=== PATIENT | female | born 1960 | race Caucasian/White ===

== ENCOUNTER 2016-07-12 02:25 | Emergency (ER) | payer BC, MEDICAID, OTHER ==
[2016-07-12 02:46] VITALS: BP 140/70
[2016-07-12] MEDS ORDERED: Sodium Chloride 0.9% 1,000 ML IV STA (02:58)
[2016-07-12] MEDS ORDERED: Ondansetron 4 MG/2 ML SDV IVPUSH ONE (02:59)
--- NOTE | 2016-07-12 03:01 | EDM.PDOC ---
ED HPI GENERAL MEDICAL PROBLEM - General Chief Complaint: General Stated Complaint: FLU Time Seen by Provider: 07/12/16 02:56 Source of Information: Reports: Patient, RN notes reviewed History Limitations: Reports: No limitations - History of Present Illness INITIAL COMMENTS - FREE TEXT/NARRATIVE: 56-year-old female presents emergency department day complaint of nausea vomiting and diarrhea she is the only member in the house but is ill as a possibility she may of had canned goods that no one else has had, this all started last evening - Related Data Allergies Allergy/AdvReac Type Severity Reaction Status Date / Time ciprofloxacin HCl Allergy Severe Bradycardia Verified 07/12/16 02:46 [From Cipro] Home Meds: Home Meds Albuterol Sulfate [Proair Hfa] 8.5 gm IH ASDIRECTED PRN 03/09/13 [History] Fluticasone Propionate [Flovent HFA 110 MCG] 2 puff IH ASDIRECTED PRN 03/09/13 [ History] Ibuprofen [Motrin Children's Susp] 400 mg PO QID PRN 03/09/13 [History] Sertraline HCl [Sertraline HCl] 50 mg PO DAILY 03/09/13 [History] Urea [Urea 40% Crm] 28.35 gm TOP BID 12/14/15 [History] Past Medical History HEENT History: Reports: Impaired vision Respiratory History: Reports: Asthma Gastrointestinal History: Reports: Cholelithiasis, GERD Musculoskeletal History: Reports: Arthritis, Back pain, chronic, Fracture Other Musculoskeletal History: L1 fracture Psychiatric History: Reports: Depression Dermatologic History: Reports: Other (see below) Other Dermatologic History: dry feet - Infectious Disease History Infectious Disease History: Reports: Chicken pox - Past Surgical History Respiratory Surgical History: Reports: None GI Surgical History: Reports: Cholecystectomy, Colonoscopy, EGD Female Surgical History: Reports: Hysterectomy, Oophorectomy, Salpingo- oophorectomy Social & Family History - Family History Family Medical History: Unobtainable - Tobacco Use Smoking Status *Q: Never Smoker Second Hand Smoke Exposure: No - Caffeine Use Caffeine Use: Reports: Coffee - Alcohol Use Days Per Week of Alcohol Use: 0 - Recreational Drug Use Recreational Drug Use: No ED ROS GENERAL - Review of Systems Review Of Systems: See Below Constitutional: Reports: fever, chills HEENT: Reports: No symptoms Respiratory: Reports: No Symptoms Cardiovascular: Reports: No symptoms GI/Abdominal: Reports: Diarrhea, Nausea, Vomiting : Reports: no symptoms ED EXAM, GENERAL - Physical Exam Exam: See Below Exam Limited By: No limitations General Appearance: alert, WD/WN, no apparent distress Respiratory/Chest: no respiratory distress, lungs clear, normal breath sounds, no accessory muscle use Cardiovascular: regular rate, rhythm, no murmur GI/Abdominal: normal bowel sounds, soft, non tender, no organomegaly, no distention, no abnormal bruit Course - Vital Signs Last Recorded V/S: Last Vital Signs Temp 98.9 F 07/12/16 02:44 Pulse 78 07/12/16 02:44 Resp 16 07/12/16 02:44 BP 140/70 07/12/16 02:44 Pulse Ox 96 07/12/16 02:44 - Orders/Labs/Meds Orders: Active Orders 24 hr Category Date Time Status Peripheral IV Care [RC] . DIRECTED Care 07/12/16 02:59 Active Sodium Chloride 0.9% [Saline Flush] Med 07/12/16 02:58 Active 10 ml FLUSH ASDIRECTED PRN Peripheral IV Insertion Adult [OM.PC] Urgent Oth 07/12/16 02:58 Ordered Medication Orders Sodium Chloride (Saline Flush) 10 ml FLUSH ASDIRECTED PRN PRN Reason: Keep Vein Open Last Admin: 07/12/16 04:41 Dose: 10 ml Admin: 07/12/16 03:23 Dose: 10 ml Labs: Laboratory Tests 07/12/16 07/12/16 07/12/16 Range/Units 02:58 02:58 02:58 WBC 13.9 H (4.5-11.0) K/uL RBC 4.91 (3.30-5.50) M/uL Hgb 15.2 H (12.0-15.0) g/dL Hct 45.5 (36.0-48.0) % MCV 93 (80-98) fL MCH 31 (27-31) pg MCHC 33 (32-36) % Plt Count 263 (150-400) K/uL Neut % (Auto) 91 H (36-66) % Lymph % (Auto) 4 L (24-44) % [place] % (Auto) 4 (2-6) % Eos % (Auto) 1 L (2-4) % Baso % (Auto) 0 (0-1) % Sodium 140 (140-148) mmol/L Potassium 4.6 (3.6-5.2) mmol/L Chloride 102 (100-108) mmol/L Carbon Dioxide 26 (21-32) mmol/L Anion Gap 11.6 (5.0-14.0) mmol/L BUN 22 H (7-18) mg/dL Creatinine 1.1 H (0.6-1.0) mg/dL Est Cr Clr Drug Dosing 54.21 mL/min Estimated GFR (MDRD) 51 L (>60) Glucose 168 H (74-106) mg/dL Lactic Acid 3.0 H (0.4-2.0) mmol/L Calcium 8.7 (8.5-10.1) mg/dL Total Bilirubin 0.4 (0.2-1.0) mg/dL AST 22 (15-37) U/L ALT 37 (12-78) U/L Alkaline Phosphatase 116 (46-116) U/L Total Protein 7.9 (6.4-8.2) g/dL Albumin 4.1 (3.4-5.0) g/dL Globulin 3.8 H (2.3-3.5) g/dL Albumin/Globulin Ratio 1.1 L (1.2-2.2) Lipase 94 (73-393) U/L Urine Color Urine Appearance Urine pH (4.5-8.0) Ur Specific Saxis (1.008-1.030) Urine Protein (NEGATIVE) mg/dL Urine Glucose (UA) (NEGATIVE) mg/dL Urine Ketones (NEGATIVE) mg/dL Urine Occult Blood (NEGATIVE) Urine Nitrite (NEGATIVE) Urine Bilirubin (NEGATIVE) Urine Urobilinogen (NORMAL) mg/dL Ur Leukocyte Esterase (NEGATIVE) Urine RBC (0-5) Urine WBC (0-5) Ur Epithelial Cells Amorphous Sediment Urine Bacteria Urine Mucus 07/12/16 Range/Units 05:04 WBC (4.5-11.0) K/uL RBC (3.30-5.50) M/uL Hgb (12.0-15.0) g/dL Hct (36.0-48.0) % MCV (80-98) fL MCH (27-31) pg MCHC (32-36) % Plt Count (150-400) K/uL Neut % (Auto) (36-66) % Lymph % (Auto) (24-44) % [place] % (Auto) (2-6) % Eos % (Auto) (2-4) % Baso % (Auto) (0-1) % Sodium (140-148) mmol/L Potassium (3.6-5.2) mmol/L Chloride (100-108) mmol/L Carbon Dioxide (21-32) mmol/L Anion Gap (5.0-14.0) mmol/L BUN (7-18) mg/dL Creatinine (0.6-1.0) mg/dL Est Cr Clr Drug Dosing mL/min Estimated GFR (MDRD) (>60) Glucose (74-106) mg/dL Lactic Acid (0.4-2.0) mmol/L Calcium (8.5-10.1) mg/dL Total Bilirubin (0.2-1.0) mg/dL AST (15-37) U/L ALT (12-78) U/L Alkaline Phosphatase (46-116) U/L Total Protein (6.4-8.2) g/dL Albumin (3.4-5.0) g/dL Globulin (2.3-3.5) g/dL Albumin/Globulin Ratio (1.2-2.2) Lipase (73-393) U/L Urine Color Yellow Urine Appearance Clear Urine pH 5.0 (4.5-8.0) Ur Specific Saxis 1.020 (1.008-1.030) Urine Protein Negative (NEGATIVE) mg/dL Urine Glucose (UA) Normal (NEGATIVE) mg/dL Urine Ketones Negative (NEGATIVE) mg/dL Urine Occult Blood Moderate (NEGATIVE) Urine Nitrite Negative (NEGATIVE) Urine Bilirubin Negative (NEGATIVE) Urine Urobilinogen Normal (NORMAL) mg/dL Ur Leukocyte Esterase Negative (NEGATIVE) Urine RBC 0-5 (0-5) Urine WBC 0-5 (0-5) Ur Epithelial Cells Few Amorphous Sediment Not seen Urine Bacteria Few Urine Mucus Not seen Meds: Medications Generic Name Dose Route Start Last Admin Trade Name Freq PRN Reason Stop Dose Admin Sodium Chloride 10 ml 07/12/16 02:58 07/12/16 04:41 Saline Flush FLUSH 10 ml ASDIRECTED PRN Administration Keep Vein Open Discontinued Medications Generic Name Dose Route Start Last Admin Trade Name Freq PRN Reason Stop Dose Admin Sodium Chloride 1,000 mls @ 999 mls/hr 07/12/16 02:58 07/12/16 03:14 Normal Saline IV 07/12/16 03:58 999 mls/hr .BOLUS STA Administration Lactated Ringer's 1,000 mls @ 999 mls/hr 07/12/16 04:12 07/12/16 04:29 Ringers, Lactated IV 07/12/16 05:12 999 mls/hr BOLUS ONE Administration Ondansetron HCl 4 mg 07/12/16 02:59 07/12/16 03:17 Zofran IVPUSH 07/12/16 03:00 4 mg ONETIME ONE Administration Prochlorperazine Edisylate 5 mg 07/12/16 04:33 07/12/16 04:38 Compazine IVPUSH 07/12/16 04:34 5 mg ONETIME ONE Administration Departure - Departure Time of Disposition: 05:37 Disposition: Home, Self-Care 01 Condition: good Clinical Impression: Gastroenteritis Forms: ED Department Discharge Additional Instructions: Continued use Zofran as needed for nausea and vomiting symptoms, Please followup with your primary care provider in 3-5 days if not better, please call return to the emergency department with worsening of symptoms. - My Orders Last 24 Hours: My Active Orders 07/12/16 02:58 Sodium Chloride 0.9% [Saline Flush] 10 ml FLUSH ASDIRECTED PRN Peripheral IV Insertion Adult [OM.PC] Urgent 07/12/16 02:59 Peripheral IV Care [RC] . DIRECTED - Assessment/Plan Last 24 Hours: My Active Orders 07/12/16 02:58 Sodium Chloride 0.9% [Saline Flush] 10 ml FLUSH ASDIRECTED PRN Peripheral IV Insertion Adult [OM.PC] Urgent 07/12/16 02:59 Peripheral IV Care [RC] . DIRECTED Plan: Assessment Acuity = acute Site and laterality = [gastroenteritis Etiology = possibly related to food borne illness Manifestations = nausea vomiting, diarrhea Location of injury = home Lab values = WBC elevated 13.9 consistent leukocytosis creatinine elevated at 1.1 consistent acute renal failure stage GIII a lactic acid elevated at 3.0 lactic acidosis urinalysis unremarkable Plan She had good improvement with combination Zofran and 2 L of fluids plan discharge home with Zofran followup with primary care 3-5 days if not better Patient was in agreement with the plan all questions were answered, they were instructed to return to the emergency department or call for worsening symptoms. This note was dictated using [employer] voice recognition software please call with any questions.
[2016-07-12] MEDS: Sodium Chloride 0.9% 10 ML Syringe FLUSH PRN ×2 (03:23→04:41)
[2016-07-12] MEDS ORDERED: Lactated Ringers 1,000 ML IV ONE (04:12)
[2016-07-12] MEDS ORDERED: Prochlorperazine 10 MG/2 ML SDV IVPUSH ONE (04:33)
== END 2016-07-12 05:50 | disposition home or self-care (01) ==
LOC: JP.ED 02:25
DX: K52.9 Noninfective gastroenteritis and colitis, unspecified (principal); J45.909 Unspecified asthma, uncomplicated; K21.9 Gastro-esophageal reflux disease without esophagitis; M19.90 Unspecified osteoarthritis, unspecified site; F32.9 Major depressive disorder, single episode, unspecified; Z90.49 Acquired absence of other specified parts of digestive tract; Z90.710 Acquired absence of both cervix and uterus; Z79.899 Other long term (current) drug therapy; Z88.1 Allergy status to other antibiotic agents
CPT/HCPCS: 36415; 80053; 81001; 83605; 83690; 85025; 96361; 96374; 96375; 99284; J0780; J2405; J7040; J7050; J7120

== ENCOUNTER 2017-01-24 06:43 | Emergency (ER) | payer BC ==
[2017-01-24 07:20] VITALS: BP 150/74
--- NOTE | 2017-01-24 07:54 | EDM.PDOC ---
ED HPI GENERAL MEDICAL PROBLEM - General Chief Complaint: Lower Extremity Injury/Pain Stated Complaint: POSSIBLE BROKEN RIGHT LEG Time Seen by Provider: 01/24/17 07:00 Source of Information: Reports: Patient History Limitations: Reports: No Limitations - History of Present Illness INITIAL COMMENTS - FREE TEXT/NARRATIVE: 48-year-old female was trying to catch a goose along [place] shore[place] last night when she slipped on the rocks and fell forward into the shallow water. She struck her knees hard on the ground and has significant pain and swelling of the right knee. She doesn't think she turned or twisted her knee but it happened fast. She has significant pain with any attempt at weightbearing today. She points to the lateral distal knee and below the patella as the more significant points of discomfort. No other injury, but she does have an appointment with orthopedics tomorrow to follow-up on her left knee which has been causing her problems. Onset: Sudden Duration: Other (Occurred just over 12 hours ago, last evening) Location: Reports: Lower Extremity, Right Severity: Moderate Improves with: Reports: Rest Worsens with: Reports: Other (Weight-bearing or attempted extension of the knee is very painful) Associated Symptoms: Reports: No Other Symptoms Right Knee Pain Score (Numeric/FACES): 6 - Related Data Allergies Allergy/AdvReac Type Severity Reaction Status Date / Time ciprofloxacin HCl Allergy Severe Bradycardia Verified 07/12/16 02:46 [From Cipro] Home Meds: Home Meds Albuterol Sulfate [Proair Hfa] 8.5 gm IH ASDIRECTED PRN 03/09/13 [History] Fluticasone Propionate [Flovent HFA 110 MCG] 2 puff IH ASDIRECTED PRN 03/09/13 [ History] Ibuprofen [Motrin Children's Susp] 400 mg PO QID PRN 03/09/13 [History] Sertraline HCl [Sertraline HCl] 50 mg PO DAILY 03/09/13 [History] Urea [Urea 40% Crm] 28.35 gm TOP BID 12/14/15 [History] Acetaminophen [Tylenol Extra Strength] 1,000 mg PO DAILY 01/24/17 [History] Past Medical History HEENT History: Reports: Impaired Vision Respiratory History: Reports: Asthma Gastrointestinal History: Reports: Cholelithiasis, GERD Musculoskeletal History: Reports: Arthritis, Back Pain, Chronic, Fracture Other Musculoskeletal History: L1 fracture Psychiatric History: Reports: Depression Dermatologic History: Reports: Other (See Below) Other Dermatologic History: dry feet - Infectious Disease History Infectious Disease History: Reports: Chicken Pox - Past Surgical History Respiratory Surgical History: Reports: None GI Surgical History: Reports: Cholecystectomy, Colonoscopy, EGD Female Surgical History: Reports: Hysterectomy, Oophorectomy, Salpingo- Oophorectomy Social & Family History - Family History Family Medical History: Unobtainable - Tobacco Use Smoking Status *Q: Never Smoker Second Hand Smoke Exposure: No - Caffeine Use Caffeine Use: Reports: Coffee, Soda, Tea - Alcohol Use Days Per Week of Alcohol Use: 0 - Recreational Drug Use Recreational Drug Use: No Review of Systems - Review of Systems Review Of Systems: See Below Respiratory: Denies: Shortness of Breath Cardiovascular: Denies: Chest Pain GI/Abdominal: Denies: Nausea, Vomiting Skin: Denies: Bruising Neurological: Denies: Paresthesia (No numbness or lack of sensation to the right lower leg) Psychiatric: Reports: No Symptoms ED EXAM, GENERAL - Physical Exam Exam: See Below Exam Limited By: No Limitations General Appearance: Alert, No Apparent Distress (Appears uncomfortable but not in any distress) Head: Atraumatic Respiratory/Chest: No Respiratory Distress Extremities: Other (Exam is otherwise limited to the lower extremities. She has obvious swelling and effusion of the right knee compared to the left knee. There is no external evidence of trauma such as abrasion or bruising. She has excellent distal pulses to both feet. Focal exam of the right knee reveals tenderness over the proximal fibula, significant tenderness to palpation of the distal patellar tendon and along the anterior tibial plateau. She is just too tender to assess ligaments at this time.) Course - Vital Signs Last Recorded V/S: Last Vital Signs Temp 99.9 F 01/24/17 06:47 Pulse 81 01/24/17 06:47 Resp 18 01/24/17 06:47 BP 150/74 H 01/24/17 06:47 Pulse Ox 95 01/24/17 06:47 - Orders/Labs/Meds Orders: Active Orders 24 hr Category Date Time Status DME for Discharge [COMM] Stat Oth 01/24/17 07:51 Ordered DME for Discharge [COMM] Stat Oth 01/24/17 14:43 Ordered - Re-Assessments/Exams Free Text/Narrative Re-Assessment/Exam: 01/24/17 07:54 A right knee and right tib-fib were x-rayed. There is a slight irregularity on the tibial plateau laterally. 01/24/17 15:14 We were originally going to have the patient just follow up with orthopedics, but I called her back to confirm a fracture with a CT scan because the findings were so subtle. This did confirm a lateral tibial plateau fracture. She was placed in a knee immobilizer and will follow up with orthopedics tomorrow. Departure - Departure Time of Disposition: 09:45 Disposition: Home, Self-Care 01 Condition: Good Clinical Impression: Fracture of tibial plateau - Discharge Information Instructions: Knee Sprain, [id number] Referrals: PCP,None [Primary Care Provider] - Forms: ED Department Discharge Care Plan Goals: Use crutches, Reji wrapping and avoid weightbearing of the right leg until your recheck with Dr. Broussard tomorrow. Acetaminophen along with ibuprofen or naproxen will help with pain. - My Orders Last 24 Hours: My Active Orders 01/24/17 07:51 DME for Discharge [COMM] Stat 01/24/17 14:43 DME for Discharge [COMM] Stat - Assessment/Plan Last 24 Hours: My Active Orders 01/24/17 07:51 DME for Discharge [COMM] Stat 01/24/17 14:43 DME for Discharge [COMM] Stat
--- NOTE | 2017-01-24 09:04 | CR ---
Knee 3V Rt, Tibia Fibula Rt INDICATION: injury FINDINGS: Cortical irregularity and lucency through the medial or lateral tibial plateau on the later al view is highly suspicious for tibial plateau fracture. This is not definitively identified on the AP view. Moderate-sized knee effusion. Probable small loose body in the suprapatellar bursa measuring 6 mm. Mild tricompartmental degenerative change. Remainder of the exam is unremarkable. Findings discussed in person with Dr. Mauro on January at 9:00 AM on 11/24/2016.
== END 2017-01-24 08:10 | disposition home or self-care (01) ==
LOC: JP.ED 06:43
DX: S82.141A Displaced bicondylar fracture of right tibia, initial encounter for closed fracture (principal); J45.909 Unspecified asthma, uncomplicated; Z88.1 Allergy status to other antibiotic agents; Z79.899 Other long term (current) drug therapy; W01.198A Fall on same level from slipping, tripping and stumbling with subsequent striking against other object, initial encounter; S89.91XA Unspecified injury of right lower leg, initial encounter
CPT/HCPCS: 73562-26-RT; 73562-RT; 73590-26-RT; 73590-RT; 73700-26-RT; 73700-RT; 99284

== ENCOUNTER 2018-06-05 07:57 | Observation (INO) | payer BC ==
[~2018-06-05 07:57] MED LIST: Midazolam 1 MG/ML 2 ML SDV ONE; Propofol 200 MG/20 ML SDV ONE; fentaNYL 100 MCG/2 ML SDV ONE
[2018-06-05] MEDS ORDERED: Dextrose 5%-Lactated Ringers 1,000 ML IV SCH (08:45)
[2018-06-05] MEDS ORDERED: Propofol 200 MG/20 ML SDV ONE (10:18)
[2018-06-05] MEDS ORDERED: Ondansetron 4 MG/2 ML SDV IVPUSH ONE (10:55)
[2018-06-05] MEDS ORDERED: HYDROmorphone 1 MG/ML Syringe IVPUSH ONE (12:15)
--- NOTE | 2018-06-05 13:39 | CRLCT ---
INDICATION: Post colonoscopy pain TECHNIQUE: CT abdomen and pelvis without contrast. COMPARISON: 07/30/17 FINDINGS: Lower chest: Unremarkable. Liver: Unremarkable. Spleen: Unremarkable. Pancreas: Unremarkable. Gallbladder and bile ducts: Cholecystectomy. Adrenal glands: Unremarkable. Kidneys: Unremarkable. No kidney or ureteral stones and no hydronephrosis. GI tract: No mechanical small bowel obstruction. Several clumped, decompressed pelvic small bowel segments on image 112, nonspecific. A normal caliber appendix. Mild gaseous distention of the majority of the colon. Left colonic diverticulosis without diverticulitis. Vascular structures: Mild atherosclerotic changes. Lymph nodes: Unremarkable. Miscellaneous: Small extraluminal fluid in the right lower quadrant, adjacent to the appendix, and posterior inferior pelvis. No free air. Small ill-defined foci of mildly increased attenuation in the central mesenteric fat, nonspecific. Pelvic Organs: Hysterectomy. Mild bladder wall thickening, at least partially related to under distention. Bones: A compression deformity of the L1 vertebral body again seen. IMPRESSION: Mild colonic gaseous distention. Colonic diverticulosis without diverticulitis. No evidence of gross appendicitis or high-grade mechanical bowel obstruction. Small extraluminal fluid in the right lower quadrant and pelvis. No free air seen. Mild bladder wall thickening is at least partly related to under distension. Correlate with urinalysis. Dictated by Neil Mariscal MD @ 06/05/2018 1:32:27 PM Please note that all CT scans at this facility use dose modulation, iterative reconstruction, and/or weight-based dosing when appropriate to reduce radiation dose to as low as reasonably achievable. Dictated by: Neil Mariscal MD @ 06/05/2018 13:32:38 (Electronically Signed)
[2018-06-05] MEDS ORDERED: Ondansetron 4 MG/2 ML SDV IVPUSH PRN (14:28)
[2018-06-05] MEDS ORDERED: HYDROmorphone 0.5 MG/0.5 ML Syringe IVPUSH ONE (14:30)
--- NOTE | 2018-06-05 14:40 | PCM.HP ---
H&P History of Present Illness - General Date of Service: 06/05/18 Admit Problem/Dx: Admission Diagnosis/Problem Admission Diagnosis/Problem Colitis Source of Information: Patient, Provider, RN Notes Reviewed History Limitations: Reports: No Limitations - History of Present Illness Initial Comments - Free Text/Narative: Ms. Oliver is a 58-year-old woman who is admitted from the patient care unit with abdominal pain and nausea following colonoscopy. She's had a recent history of 3 episodes of diverticulitis over the past year, most recent of which was in March 2018. Colonoscopy was scheduled for follow-up, since her episode of diverticulitis in March she is felt relatively well and denies any new symptoms over the past few weeks. She has a history of irritable bowel syndrome with alternating diarrhea and constipation, this pattern has not changed significantly in the past several weeks. She denies any increase in diarrhea, fever, or increase in abdominal pain. She does have chronic right lower quadrant abdominal pain that is been present for many years. Colonoscopy was performed this morning by Dr. Guerrero and did show evidence of colitis in the left colon, not involving the rectum. She has had occasional episodes of blood on the toilet paper and small amount of blood in the toilet water but denies any overt bleeding. On colonoscopy she was found to have evidence of diverticulosis but no diverticulitis. She has had significant pain in her right lower quadrant since surgery, it similar to the usual pain that she experiences but more intense. She also is had some ongoing difficulty with nausea. CT scan of the abdomen and pelvis shows evidence of diverticulosis, oh evidence of diverticulitis or free air within the abdomen. No evidence of significant colonic inflammation was identified on the CT scan. Right Abdominal Pain Score (Numeric/FACES): 8 - Related Data Allergies/Adverse Reactions: Allergies Allergy/AdvReac Type Severity Reaction Status Date / Time ciprofloxacin HCl Allergy Severe Bradycardia Verified 06/05/18 08:24 [From Cipro] adhesive tape Allergy Other Verified 06/05/18 08:24 cat dander Allergy Other Verified 06/05/18 08:24 dog dander Allergy Other Verified 06/05/18 08:24 Quinolones Allergy Other Verified 06/05/18 08:24 environmental Allergy Other Uncoded 06/05/18 08:24 Home Medications: Home Meds Albuterol Sulfate [Proair Hfa] 2 puff IH Q4H PRN 03/09/13 [History] Fluticasone Propionate [Flovent HFA 110 MCG] 2 puff IH ASDIRECTED PRN 03/09/13 [ History] Sertraline HCl 50 mg PO DAILY 03/09/13 [History] Ondansetron [Zofran ODT] 4 mg PO Q6H PRN #10 tab.dis 01/07/18 [Rx] Amoxicillin/Clavulanate K [Augmentin 875-125 MG] 1 tab PO BID PRN 06/03/18 [ History] Aspirin [Low Dose Aspirin EC] 81 mg PO DAILY 06/03/18 [History] metroNIDAZOLE [Metronidazole] 500 mg PO BID PRN 06/03/18 [History] Naproxen Sodium [Aleve] 220 mg PO DAILY PRN 06/05/18 [History] Past Medical History HEENT History: Reports: Impaired Vision Respiratory History: Reports: Asthma Gastrointestinal History: Reports: Cholelithiasis, Chronic Constipation, Chronic Diarrhea, Diverticulosis, GERD, Irritable Bowel Syndrome Genitourinary History: Reports: None MAINFRAME ARCHITECT History: Reports: Endometriosis Musculoskeletal History: Reports: Arthritis, Fracture Other Musculoskeletal History: L1 fracture Psychiatric History: Reports: Depression Endocrine/Metabolic History: Reports: Obesity/BMI 30+ Dermatologic History: Reports: Other (See Below) Other Dermatologic History: dry feet - Infectious Disease History Infectious Disease History: Reports: Chicken Pox - Past Surgical History HEENT Surgical History: Reports: None Respiratory Surgical History: Reports: None GI Surgical History: Reports: Cholecystectomy, Colonoscopy, EGD Female Surgical History: Reports: Breast Biopsy, Hysterectomy, Oophorectomy, Salpingo-Oophorectomy Endocrine Surgical History: Reports: None Musculoskeletal Surgical History: Reports: Arthroscopic Knee Dermatological Surgical History: Reports: None Social & Family History - Family History Family Medical History: Unobtainable Cardiac: Reports: Bypass, CAD - Tobacco Use Smoking Status *Q: Former Smoker Years of Tobacco use: 4 Packs/Tins Daily: 1 Used Tobacco, but Quit: Yes Month/Year Tobacco Last Used: March Second Hand Smoke Exposure: No - Caffeine Use Caffeine Use: Reports: Coffee, Soda - Recreational Drug Use Recreational Drug Use: No H&P Review of Systems - Review of Systems: Review Of Systems: See Below General: Reports: No Symptoms HEENT: Reports: No Symptoms Pulmonary: Reports: No Symptoms Cardiovascular: Reports: No Symptoms Gastrointestinal: Reports: Abdominal Pain, Constipation, Diarrhea, Nausea. Denies: Black Stool, Bloody Stool, Decreased Appetite, Difficulty Swallowing, Distension, Vomiting Genitourinary: Reports: No Symptoms Musculoskeletal: Reports: No Symptoms Skin: Reports: No Symptoms Psychiatric: Reports: No Symptoms Neurological: Reports: No Symptoms Hematologic/Lymphatic: Reports: No Symptoms Immunologic: Reports: No Symptoms Exam - Exam Exam: See Below - Vital Signs Vital Signs: Last Vital Signs Temp 97.3 F 06/05/18 11:15 Pulse 74 06/05/18 12:59 Resp 16 06/05/18 12:59 BP 117/73 06/05/18 12:59 Pulse Ox 96 06/05/18 12:59 Weight: 225 lb 9.6 oz - Exam Quality Assessment: Supplemental Oxygen, DVT Prophylaxis General: Alert, Oriented, Cooperative, Moderate Distress HEENT: Conjunctiva Clear, Hearing Intact, Mucosa Moist & [place], Normal Nasal Septum, Posterior Pharynx Clear, Pupils Equal Neck: Supple, Trachea Midline, +2 Carotid Pulse wo Bruit Lungs: Clear to Auscultation, Normal Respiratory Effort Cardiovascular: Regular Rate, Regular Rhythm, Normal S1, Normal S2. No: Systolic Murmur, Diastolic Murmur GI/Abdominal Exam: Soft, No Organomegaly, Tender. No: Distended, Guarding, Rigid, Rebound Back Exam: Normal Inspection, Full Range of Motion Extremities: Non-Tender, No Pedal Edema Skin: Warm, Dry, Intact Neurological: Cranial Nerves Intact, Strength Equal Bilateral, Normal Speech, Normal Tone, Sensation Intact. No: Focal Deficit Neuro Extensive - Mental Status: Alert, Oriented x3, Normal Mood/Affect, Normal Cognition, Memory Intact - Patient Data Nathan Results Last 24 hrs: Microbiology 06/05/18 10:54 Clostridioides difficile (PCR) - Final Stool / Feces NEGATIVE CDIFF TOXIN *Q Meaningful Use (ADM) - VTE Risk Assess *Q Each Risk Factor Represents 1 Point: Obesity ( BMI > 25 kg/m2) Total Score 1 Point Risk Factors: 1 Each Risk Factor Represents 2 Points: Age 60 - 74 Years Total Score 2 Point Risk Factors: 2 Each Risk Factor Represents 3 Points: None Total Score 3 Point Risk Factors: 0 Each Risk Factor Represents 5 Points: None Total Score 5 Point Risk Factors: 0 Venous Thromboembolism Risk Factor Score *Q: 3 Problem List Initiated/Reviewed/Updated: Yes Orders Last 24hrs: Active Orders 24 hr Category Date Time Status Patient Status Manage Transfer [TRANSFER] Routine ADT 06/05/18 14:25 Active CLOSTRIDIUM DIFFICILE BY PCR [RM] Stat Lab 06/05/18 14:37 Ordered CULTURE STOOL + SHIGATOX [RM] Routine Lab 06/05/18 10:54 Received OVA + PARASITE EXAM Routine Lab 06/05/18 10:54 Received Dextrose 5%-Lactated Ringers 1,000 ml Med 06/05/18 08:45 Active IV ASDIRECTED Ondansetron [Zofran] Med 06/05/18 14:28 Active 4 mg IVPUSH Q4H PRN Resuscitation Status Routine Resus Stat 06/05/18 14:27 Ordered Medication Orders Dextrose/Lactated Ringer's (Dextrose 5%-Lactated Ringers) 1,000 mls @ 100 mls/ hr IV ASDIRECTED WILFRED Last Admin: 06/05/18 08:48 Dose: 100 mls/hr Ondansetron HCl (Zofran) 4 mg IVPUSH Q4H PRN PRN Reason: Nausea/Vomiting Stop: 06/05/18 23:00 Assessment/Plan Comment:: ASSESSMENT AND PLAN ABDOMINAL PAIN AND NAUSEA STATUS POST COLONOSCOPY-likely secondary to increased air in the colon, from recent procedure. CT scan of the abdomen and pelvis shows no evidence of free air or other significant abnormality to explain current symptoms. -IV fluids for hydration -Indication for pain and nausea as needed COLITIS-identified on colonoscopy, no evidence of significant colon wall thickening noted on CT scan. Unlikely that this is the cause of current pain, in that the colitis was found on the left and most of her pain is in the right lower quadrant. Prior to today she has not had significant increase in her chronic abdominal pain or change in bowel habits. Small amount of blood noted intermittently in the form of blood on the toilet paper and drops of blood in the toilet water. Denies any recent fevers chills or sweats. Stool for C. difficile is negative, cultures pending. Most likely this represents infectious colitis, less likely inflammatory bowel disease area -Labs pending including CBC and CRP -IV antibiotic therapy; ceftriaxone and Flagyl MAINTENANCE ISSUES -DVT prophylaxis; Lovenox 40 mg subcutaneous daily -GI prophylaxis; Protonix 40 mg by mouth daily -Jaimes catheter; not indicated -Nutrition; regular diet -Nicotine dependence; not required CODE STATUS-full code ADMISSION STATUS-this patient will be admitted to observation status, expect no more than a one night hospital stay for evaluation and management of problems as outlined above. DISPOSITION-anticipate discharge to home after the hospital stay. PRIMARY CARE PROVIDER-Dr. Hwang
[2018-06-05] MEDS ORDERED: Ondansetron 4 MG/2 ML SDV IV PRN (15:22)
[2018-06-05] MEDS ORDERED: Albuterol 0.083% 2.5 MG/3 ML Neb Soln NEB PRN (15:22)
[2018-06-05] MEDS ORDERED: LORazepam 2 MG/ML SDV IVPUSH PRN (15:22)
[2018-06-05] MEDS ORDERED: Albuterol 8 GM Inhaler INH PRN (15:22)
[2018-06-05] MEDS ORDERED: Sodium Chloride 0.9% 10 ML Syringe FLUSH PRN (15:22)
[2018-06-05] MEDS ORDERED: HYDROmorphone 0.5 MG/0.5 ML Syringe IVPUSH PRN (15:22)
[2018-06-05] MEDS ORDERED: FLUTICASONE PROPIONATE IH PRN (15:22)
[2018-06-05] MEDS ORDERED: Mometasone Furoate HFA 100mcg/Puff 13 GM Inhaler INH PRN (16:39)
[2018-06-05] MEDS: cefTRIAXone 1 GM in Sodium Chloride 0.9% 50 ML IV SCH (17:01)
[2018-06-05] MEDS: Lactobacillus Rhamnosus GG (Probiotic) Cap PO SCH ×2 (17:01→20:27)
[2018-06-05] MEDS: Enoxaparin 40 MG/0.4 ML Syringe SUBCUT SCH (17:19)
[2018-06-05] MEDS: Sodium Chloride 0.9% 1,000 ML IV SCH (17:21)
[2018-06-05] MEDS: metroNIDAZOLE/Normal Saline 500 MG in Premix Bag 1 BAG IV SCH (18:01)
[2018-06-05] MEDS: Calcium Carbonate 500 MG Tab.Chew PO PRN (22:38)
[2018-06-05] MEDS: HYDROmorphone 2 MG Tab PO PRN (22:39)
[2018-06-06] MEDS: metroNIDAZOLE/Normal Saline 500 MG in Premix Bag 1 BAG IV SCH ×3 (00:48→16:41)
[2018-06-06] MEDS: Sodium Chloride 0.9% 1,000 ML IV SCH ×2 (00:48→10:20)
[2018-06-06] MEDS: HYDROmorphone 2 MG Tab PO PRN ×2 (02:59→07:58)
[2018-06-06] MEDS: Pantoprazole 40 MG Tab.CR PO SCH (07:51)
[2018-06-06] MEDS: Lactobacillus Rhamnosus GG (Probiotic) Cap PO SCH ×2 (08:00→21:25)
[2018-06-06] MEDS ORDERED: Aspirin 81 MG Tab.EC PO SCH (09:00)
[2018-06-06] MEDS ORDERED: Sertraline 50 MG Tab PO SCH (09:00)
--- NOTE | 2018-06-06 09:42 | PCM.SURGPN ---
- General Info Date of Surgery/Procedure: 06/05/18 Post-Op Diagnosis: Right Lower Quadrant Abdominal Pain Functional Status: Reports: Pain Controlled Pain Score: 4 - Review of Systems General: Reports: Weakness, Fatigue HEENT: Reports: No Symptoms Pulmonary: Reports: No Symptoms Cardiovascular: Reports: No Symptoms Gastrointestinal: Reports: Abdominal Pain (right lower quadrant), Decreased Appetite Genitourinary: Reports: No Symptoms Musculoskeletal: Reports: No Symptoms Skin: Reports: No Symptoms Neurological: Reports: No Symptoms Psychiatric: Reports: No Symptoms - Patient Data Vitals - Most Recent: Last Vital Signs Temp 99 F 06/06/18 07:35 Pulse 72 06/06/18 07:35 Resp 16 06/06/18 07:35 BP 118/63 06/06/18 07:35 Pulse Ox 97 06/06/18 07:35 Weight - Most Recent: 225 lb 9.6 oz I&O - Last 24 Hours: Intake & Output 06/05/18 06/06/18 06/06/18 22:59 06:59 14:59 Intake Total 910 2169 100 Output Total 400 400 400 Balance 510 1769 -300 Lab Results Last 24 Hrs: Laboratory Results - last 24 hr 06/05/18 06/05/18 Range/Units 15:22 15:22 WBC 10.1 (4.5-11.0) K/uL RBC 4.61 (3.30-5.50) M/uL Hgb 14.3 (12.0-15.0) g/dL Hct 44.2 (36.0-48.0) % MCV 96 (80-98) fL MCH 31 (27-31) pg MCHC 32 (32-36) % Plt Count 259 (150-400) K/uL Neut % (Auto) 81 H (36-66) % Lymph % (Auto) 12 L (24-44) % Davidson % (Auto) 6 (2-6) % Eos % (Auto) 2 (2-4) % Baso % (Auto) 0 (0-1) % Sodium 141 (140-148) mmol/L Potassium 3.9 (3.6-5.2) mmol/L Chloride 105 (100-108) mmol/L Carbon Dioxide 26 (21-32) mmol/L Anion Gap 9.8 (5.0-14.0) mmol/L BUN 15 (7-18) mg/dL Creatinine 0.9 (0.6-1.0) mg/dL Est Cr Clr Drug Dosing 63.43 mL/min Estimated GFR (MDRD) > 60 (>60) Glucose 119 H (74-106) mg/dL Calcium 8.8 (8.5-10.1) mg/dL Total Bilirubin 0.4 (0.2-1.0) mg/dL AST 26 (15-37) U/L ALT 35 (12-78) U/L Alkaline Phosphatase 119 H (46-116) U/L C-Reactive Protein 0.47 H (0.0-0.3) mg/dL Total Protein 7.0 (6.4-8.2) g/dL Albumin 3.6 (3.4-5.0) g/dL Globulin 3.4 (2.3-3.5) g/dL Albumin/Globulin Ratio 1.1 L (1.2-2.2) Nathan Results Last 24 Hrs: Microbiology 06/05/18 10:54 Stool Culture - Preliminary Stool / Feces - Stool, Liquid NORMAL ENTERIC CHRIS 1 DAY Shiga Toxin I - Final NEGATIVE FOR SHIGA TOXIN 1 Shiga Toxin II - Final NEGATIVE FOR SHIGA TOXIN 2 06/05/18 10:54 Clostridioides difficile (PCR) - Final Stool / Feces NEGATIVE CDIFF TOXIN Med Orders - Current: Current Medications Acetaminophen (Tylenol) 650 mg PO Q4H PRN PRN Reason: Pain (Mild 1-3)/fever Albuterol (Ventolin Hfa) 0 gm INH Q4H PRN PRN Reason: Wheezing Albuterol (Proventil Neb Soln) 2.5 mg NEB Q4H PRN PRN Reason: Shortness Of Breath/wheezing Aspirin (Halfprin) 81 mg PO DAILY [facility] Last Admin: 06/06/18 08:01 Dose: Not Given Calcium Carbonate/Glycine (Tums) 1,000 mg PO Q2H PRN PRN Reason: Indigestion Last Admin: 06/05/18 22:38 Dose: 1,000 mg Enoxaparin Sodium (Lovenox) 40 mg SUBCUT Q24H [facility] Last Admin: 06/05/18 17:19 Dose: Not Given Hydromorphone HCl (Dilaudid) 0.25 mg IVPUSH Q2H PRN PRN Reason: Pain Last Admin: 06/05/18 17:19 Dose: 0.25 mg Hydromorphone HCl (Dilaudid) 2 mg PO Q3H PRN PRN Reason: Pain Last Admin: 06/06/18 07:58 Dose: 1 mg Ceftriaxone Sodium 1 gm/ (Sodium Chloride) 50 mls @ 100 mls/hr IV Q24H [facility] Last Admin: 06/05/18 17:01 Dose: 100 mls/hr Sodium Chloride (Normal Saline) 1,000 mls @ 125 mls/hr IV ASDIRECTED [facility] Last Admin: 06/06/18 00:48 Dose: 125 mls/hr Metronidazole 500 mg/ Premix 100 mls @ 100 mls/hr IV Q8H [facility] Last Admin: 06/06/18 09:12 Dose: 100 mls/hr Lactobacillus Rhamnosus (Culturelle) 1 cap PO BID [facility] Last Admin: 06/06/18 08:00 Dose: 1 cap Lorazepam (Ativan) 0.25 mg IVPUSH Q4H PRN PRN Reason: Nausea Mometasone Furoate (Asmanex Hfa 100mcg) 0 gm INH BIDRT PRN PRN Reason: WHEEZING Naproxen (Naproxen Sodium) 220 mg PO DAILY PRN PRN Reason: Pain Ondansetron HCl (Zofran) 4 mg IV Q4H PRN PRN Reason: Nausea/Vomiting Pantoprazole Sodium (Protonix) 40 mg PO ACBREAKFAST [facility] Last Admin: 06/06/18 07:51 Dose: 40 mg Sertraline HCl (Zoloft) 50 mg PO DAILY [facility] Last Admin: 06/06/18 08:01 Dose: Not Given Sodium Chloride (Saline Flush) 10 ml FLUSH ASDIRECTED PRN PRN Reason: Keep Vein Open Discontinued Medications Fentanyl (Sublimaze) Confirm Administered Dose 100 mcg .ROUTE .STK-MED ONE Stop: 06/05/18 07:36 Hydromorphone HCl (Dilaudid) 1 mg IVPUSH ONETIME ONE Stop: 06/05/18 12:16 Last Admin: 06/05/18 12:20 Dose: 1 mg Hydromorphone HCl (Dilaudid) 0.5 mg IVPUSH ONETIME ONE Stop: 06/05/18 14:31 Last Admin: 06/05/18 14:34 Dose: 0.5 mg Dextrose/Lactated Ringer's (Dextrose 5%-Lactated Ringers) 1,000 mls @ 100 mls/ hr IV ASDIRECTED WILFRED Last Admin: 06/05/18 08:48 Dose: 100 mls/hr Midazolam HCl (Versed 1 Mg/Ml) Confirm Administered Dose 2 mg .ROUTE .STK-MED ONE Stop: 06/05/18 07:36 Ondansetron HCl (Zofran) 4 mg IVPUSH ONETIME ONE Stop: 06/05/18 10:56 Last Admin: 06/05/18 11:02 Dose: 4 mg Ondansetron HCl (Zofran) 4 mg IVPUSH Q4H PRN PRN Reason: Nausea/Vomiting Stop: 06/05/18 23:00 Last Admin: 06/05/18 14:40 Dose: 4 mg Propofol (Diprivan 20 Ml) Confirm Administered Dose 200 mg .ROUTE .STK-MED ONE Stop: 06/05/18 07:36 Propofol (Diprivan 20 Ml) Confirm Administered Dose 200 mg .ROUTE .STK-MED ONE Stop: 06/05/18 10:19 - Exam General: Mild Distress HEENT: Pupils Equal, Pupils Reactive Neck: Supple Lungs: Clear to Auscultation, Normal Respiratory Effort Cardiovascular: Regular Rate, Regular Rhythm GI/Abdominal Exam: Tender (moderate amount of tenderness in the right lower quadrant ) Extremities: Normal Inspection, Normal Range of Motion Skin: Warm, Dry, Intact Neurological: Normal Gait, Normal Speech Psy/Mental Status: Alert - Problem List & Annotations (1) Status post colonoscopy SNOMED Code(s): 829348980149, [id number], 583354296551 Code(s): Z98.890 - OTHER SPECIFIED POSTPROCEDURAL STATES Status: Acute Current Visit: Yes - Problem List Review Problem List Initiated/Reviewed/Updated: Yes - My Orders Last 24 Hours: Active Orders 24 hr Category Date Time Status Patient Status [ADT] Routine ADT 06/05/18 15:22 Active Ambulate [RC] QID Care 06/05/18 15:22 Active Height and Weight [RC] DAILY Care 06/05/18 15:22 Active Intake and Output [RC] QSHIFT Care 06/05/18 15:22 Active Notify Provider Vital Signs [RC] ASDIRECTED Care 06/05/18 15:22 Active Overnight Pulse Oximetry [RC] Click to Edit Care 06/05/18 15:22 Active Oxygen Therapy [RC] PRN Care 06/05/18 15:22 Active RT Aerosol Therapy [RC] ASDIRECTED Care 06/05/18 15:22 Active Up ad Sara [RC] ASDIRECTED Care 06/05/18 15:22 Active Up to Chair [RC] QID Care 06/05/18 15:22 Active VTE/DVT Education [RC] Per Unit Routine Care 06/05/18 15:22 Active Vital Signs [RC] Q4H Care 06/05/18 15:22 Active Regular Diet [DIET] Diet 06/05/18 Lunch Active CULTURE STOOL + SHIGATOX [RM] Routine Lab 06/05/18 10:54 Results OVA + PARASITE EXAM Routine Lab 06/05/18 10:54 Received Acetaminophen [Tylenol] Med 06/05/18 15:22 Active 650 mg PO Q4H PRN Albuterol [Proventil Neb Soln] Med 06/05/18 15:22 Active 2.5 mg NEB Q4H PRN Albuterol [Ventolin HFA] Med 06/05/18 15:22 Active 0 gm INH Q4H PRN Aspirin [Halfprin] Med 06/06/18 09:00 Active 81 mg PO DAILY Calcium Carbonate [Tums] Med 06/05/18 21:47 Active 1,000 mg PO Q2H PRN Enoxaparin [Lovenox] Med 06/05/18 17:00 Active 40 mg SUBCUT Q24H HYDROmorphone [Dilaudid] Med 06/05/18 15:22 Active 0.25 mg IVPUSH Q2H PRN HYDROmorphone [Dilaudid] Med 06/05/18 22:24 Active 2 mg PO Q3H PRN LORazepam [Ativan] Med 06/05/18 15:22 Active 0.25 mg IVPUSH Q4H PRN Lactobacillus Rhamnosus GG [Culturelle] Med 06/05/18 16:15 Active 1 cap PO BID Mometasone Furoate 100mcg [Asmanex HFA 100mcg] Med 06/05/18 16:39 Active 0 gm INH BIDRT PRN Naproxen Sodium Med 06/05/18 15:22 Active 220 mg PO DAILY PRN Ondansetron [Zofran] Med 06/05/18 15:22 Active 4 mg IV Q4H PRN Pantoprazole [ProTONIX] Med 06/06/18 07:30 Active 40 mg PO ACBREAKFAST Sertraline [Zoloft] Med 06/06/18 09:00 Active 50 mg PO DAILY Sodium Chloride 0.9% [Normal Saline] 1,000 ml Med 06/05/18 15:22 Active IV ASDIRECTED Sodium Chloride 0.9% [Saline Flush] Med 06/05/18 15:22 Active 10 ml FLUSH ASDIRECTED PRN cefTRIAXone [Rocephin] 1 gm Med 06/05/18 16:30 Active Sodium Chloride 0.9% [Normal Saline] 50 ml IV Q24H metroNIDAZOLE/Normal Saline [Flagyl 500 MG in NS 100 ML Med 06/05/18 17:30 Active ] 500 mg Premix Bag 1 bag IV Q8H Peripheral IV Insertion Adult [OM.PC] Routine Oth 06/05/18 15:22 Ordered Pulse Oximetry Continuous Monitoring [OM.PC] Routine Oth 06/05/18 15:22 Ordered Resuscitation Status Routine Resus Stat 06/05/18 14:27 Ordered Medication Orders Acetaminophen (Tylenol) 650 mg PO Q4H PRN PRN Reason: Pain (Mild 1-3)/fever Albuterol (Ventolin Hfa) 0 gm INH Q4H PRN PRN Reason: Wheezing Albuterol (Proventil Neb Soln) 2.5 mg NEB Q4H PRN PRN Reason: Shortness Of Breath/wheezing Aspirin (Halfprin) 81 mg PO DAILY [facility] Last Admin: 06/06/18 08:01 Dose: Not Given Calcium Carbonate/Glycine (Tums) 1,000 mg PO Q2H PRN PRN Reason: Indigestion Last Admin: 06/05/18 22:38 Dose: 1,000 mg Enoxaparin Sodium (Lovenox) 40 mg SUBCUT Q24H [facility] Last Admin: 06/05/18 17:19 Dose: Not Given Hydromorphone HCl (Dilaudid) 0.25 mg IVPUSH Q2H PRN PRN Reason: Pain Last Admin: 06/05/18 17:19 Dose: 0.25 mg Hydromorphone HCl (Dilaudid) 2 mg PO Q3H PRN PRN Reason: Pain Last Admin: 06/06/18 07:58 Dose: 1 mg Admin: 06/06/18 02:59 Dose: 1 mg Admin: 06/05/18 22:39 Dose: 1 mg Ceftriaxone Sodium 1 gm/ (Sodium Chloride) 50 mls @ 100 mls/hr IV Q24H [facility] Last Admin: 06/05/18 17:01 Dose: 100 mls/hr Sodium Chloride (Normal Saline) 1,000 mls @ 125 mls/hr IV ASDIRECTED [facility] Last Admin: 06/06/18 00:48 Dose: 125 mls/hr Infusion: 06/06/18 00:48 Dose: 125 mls/hr Admin: 06/05/18 17:21 Dose: 125 mls/hr Metronidazole 500 mg/ Premix 100 mls @ 100 mls/hr IV Q8H [facility] Last Admin: 06/06/18 09:12 Dose: 100 mls/hr Infusion: 06/06/18 01:48 Dose: 100 mls/hr Admin: 06/06/18 00:48 Dose: 100 mls/hr Infusion: 06/05/18 19:01 Dose: 100 mls/hr Admin: 06/05/18 18:01 Dose: 100 mls/hr Lactobacillus Rhamnosus (Culturelle) 1 cap PO BID [facility] Last Admin: 06/06/18 08:00 Dose: 1 cap Admin: 06/05/18 20:27 Dose: 1 cap Admin: 06/05/18 17:01 Dose: 1 cap Lorazepam (Ativan) 0.25 mg IVPUSH Q4H PRN PRN Reason: Nausea Mometasone Furoate (Asmanex Hfa 100mcg) 0 gm INH BIDRT PRN PRN Reason: WHEEZING Naproxen (Naproxen Sodium) 220 mg PO DAILY PRN PRN Reason: Pain Ondansetron HCl (Zofran) 4 mg IV Q4H PRN PRN Reason: Nausea/Vomiting Pantoprazole Sodium (Protonix) 40 mg PO ACBREAKFAST [facility] Last Admin: 06/06/18 07:51 Dose: 40 mg Sertraline HCl (Zoloft) 50 mg PO DAILY [facility] Last Admin: 06/06/18 08:01 Dose: Not Given Sodium Chloride (Saline Flush) 10 ml FLUSH ASDIRECTED PRN PRN Reason: Keep Vein Open - Assessment Assessment (Free Text/Narrative):: Right Abdominal Pain SP Colonoscopy - Plan Plan (Free Text/Narrative):: Continue with Dilaudid Patient states the 1/2 Dilaudid helps with her pain. She would like to continue taking the Dilaudid. Colette Juárez
[2018-06-06] MEDS: Calcium Carbonate 500 MG Tab.Chew PO PRN (10:16)
[2018-06-06] MEDS: Acetaminophen 325 MG Tab PO PRN ×2 (10:16→16:48)
[2018-06-06] MEDS ORDERED: Acetaminophen/HYDROcodone 325-5 MG Tab PO PRN (11:40)
[2018-06-06] MEDS: cefTRIAXone 1 GM in Sodium Chloride 0.9% 50 ML IV SCH (15:52)
--- NOTE | 2018-06-06 15:55 | PCM.PN ---
- General Info Date of Service: 06/06/18 Subjective Update: Ms. Oliver is improved modestly with decrease in her right lower quadrant abdominal pain since admission. Continues to experience pain just not as intensely as it had been before. Pain does seem to be worse with movement such as getting out of bed or up from the chair. Denies significant nausea or vomiting. There've been no precipitating or relieving factors with the pain. Pain is consistent with what she is experienced over the past several years, just more intense. Vital signs have been stable and she has remained afebrile. White blood cell count remains normal, CRP is elevated today compared to yesterday. Functional Status: Reports: Tolerating Diet, Ambulating, Urinating - Review of Systems General: Reports: Weakness. Denies: Fever, Chills Pulmonary: Reports: No Symptoms Cardiovascular: Reports: No Symptoms Gastrointestinal: Reports: Abdominal Pain. Denies: Difficulty Swallowing, Nausea, Vomiting - Patient Data Vitals - Most Recent: Last Vital Signs Temp 99.1 F 06/06/18 15:29 Pulse 82 06/06/18 15:29 Resp 16 06/06/18 15:29 BP 123/63 06/06/18 15:29 Pulse Ox 97 06/06/18 15:29 Weight - Most Recent: 225 lb 9.584 oz I&O - Last 24 Hours: Intake & Output 06/06/18 06/06/18 06/06/18 06:59 14:59 22:59 Intake Total 2169 600 Output Total 400 600 Balance 1769 0 Lab Results Last 24 Hours: Laboratory Results - last 24 hr 06/05/18 06/05/18 06/06/18 Range/Units 15:22 15:22 10:46 WBC 10.1 9.2 (4.5-11.0) K/uL RBC 4.61 4.12 (3.30-5.50) M/uL Hgb 14.3 12.9 (12.0-15.0) g/dL Hct 44.2 40.0 (36.0-48.0) % MCV 96 97 (80-98) fL MCH 31 31 (27-31) pg MCHC 32 32 (32-36) % Plt Count 259 227 (150-400) K/uL Neut % (Auto) 81 H 75 H (36-66) % Lymph % (Auto) 12 L 15 L (24-44) % [place] % (Auto) 6 9 H (2-6) % Eos % (Auto) 2 2 (2-4) % Baso % (Auto) 0 0 (0-1) % Sodium 141 (140-148) mmol/L Potassium 3.9 (3.6-5.2) mmol/L Chloride 105 (100-108) mmol/L Carbon Dioxide 26 (21-32) mmol/L Anion Gap 9.8 (5.0-14.0) mmol/L BUN 15 (7-18) mg/dL Creatinine 0.9 (0.6-1.0) mg/dL Est Cr Clr Drug Dosing 63.43 mL/min Estimated GFR (MDRD) > 60 (>60) Glucose 119 H (74-106) mg/dL Calcium 8.8 (8.5-10.1) mg/dL Total Bilirubin 0.4 (0.2-1.0) mg/dL AST 26 (15-37) U/L ALT 35 (12-78) U/L Alkaline Phosphatase 119 H (46-116) U/L C-Reactive Protein 0.47 H (0.0-0.3) mg/dL Total Protein 7.0 (6.4-8.2) g/dL Albumin 3.6 (3.4-5.0) g/dL Globulin 3.4 (2.3-3.5) g/dL Albumin/Globulin Ratio 1.1 L (1.2-2.2) 06/06/18 Range/Units 10:46 WBC (4.5-11.0) K/uL RBC (3.30-5.50) M/uL Hgb (12.0-15.0) g/dL Hct (36.0-48.0) % MCV (80-98) fL MCH (27-31) pg MCHC (32-36) % Plt Count (150-400) K/uL Neut % (Auto) (36-66) % Lymph % (Auto) (24-44) % [place] % (Auto) (2-6) % Eos % (Auto) (2-4) % Baso % (Auto) (0-1) % Sodium 138 L (140-148) mmol/L Potassium 4.4 (3.6-5.2) mmol/L Chloride 103 (100-108) mmol/L Carbon Dioxide 27 (21-32) mmol/L Anion Gap 12.4 (5.0-14.0) mmol/L BUN 10 (7-18) mg/dL Creatinine 0.8 (0.6-1.0) mg/dL Est Cr Clr Drug Dosing 71.46 mL/min Estimated GFR (MDRD) > 60 (>60) Glucose 118 H (74-106) mg/dL Calcium 8.9 (8.5-10.1) mg/dL Total Bilirubin 0.6 (0.2-1.0) mg/dL AST 22 (15-37) U/L ALT 32 (12-78) U/L Alkaline Phosphatase 105 (46-116) U/L C-Reactive Protein 5.26 H (0.0-0.3) mg/dL Total Protein 6.5 (6.4-8.2) g/dL Albumin 3.2 L (3.4-5.0) g/dL Globulin 3.3 (2.3-3.5) g/dL Albumin/Globulin Ratio 1.0 L (1.2-2.2) Nathan Results Last 24 Hours: Microbiology 06/05/18 10:54 Stool Culture - Preliminary Stool / Feces - Stool, Liquid NORMAL ENTERIC CHRIS 1 DAY Shiga Toxin I - Final NEGATIVE FOR SHIGA TOXIN 1 Shiga Toxin II - Final NEGATIVE FOR SHIGA TOXIN 2 06/05/18 10:54 Clostridioides difficile (PCR) - Final Stool / Feces NEGATIVE CDIFF TOXIN Med Orders - Current: Current Medications Acetaminophen (Tylenol) 650 mg PO Q4H PRN PRN Reason: Pain (Mild 1-3)/fever Last Admin: 06/06/18 10:16 Dose: 650 mg Hydrocodone Bitart/Acetaminophen ([place] 325-5 Mg) 1 tab PO Q4H PRN PRN Reason: Pain Albuterol (Ventolin Hfa) 0 gm INH Q4H PRN PRN Reason: Wheezing Albuterol (Proventil Neb Soln) 2.5 mg NEB Q4H PRN PRN Reason: Shortness Of Breath/wheezing Aspirin (Halfprin) 81 mg PO DAILY [facility] Last Admin: 06/06/18 08:01 Dose: Not Given Calcium Carbonate/Glycine (Tums) 1,000 mg PO Q2H PRN PRN Reason: Indigestion Last Admin: 06/06/18 10:16 Dose: 1,000 mg Enoxaparin Sodium (Lovenox) 40 mg SUBCUT Q24H [facility] Last Admin: 06/05/18 17:19 Dose: Not Given Ceftriaxone Sodium 1 gm/ (Sodium Chloride) 50 mls @ 100 mls/hr IV Q24H [facility] Last Admin: 06/05/18 17:01 Dose: 100 mls/hr Metronidazole 500 mg/ Premix 100 mls @ 100 mls/hr IV Q8H [facility] Last Admin: 06/06/18 09:12 Dose: 100 mls/hr Lactobacillus Rhamnosus (Culturelle) 1 cap PO BID [facility] Last Admin: 06/06/18 08:00 Dose: 1 cap Lorazepam (Ativan) 0.25 mg IVPUSH Q4H PRN PRN Reason: Nausea Mometasone Furoate (Asmanex Hfa 100mcg) 0 gm INH BIDRT PRN PRN Reason: WHEEZING Naproxen (Naproxen Sodium) 220 mg PO DAILY PRN PRN Reason: Pain Ondansetron HCl (Zofran) 4 mg IV Q4H PRN PRN Reason: Nausea/Vomiting Pantoprazole Sodium (Protonix) 40 mg PO ACBREAKFAST [facility] Last Admin: 06/06/18 07:51 Dose: 40 mg Sertraline HCl (Zoloft) 50 mg PO DAILY [facility] Last Admin: 06/06/18 08:01 Dose: Not Given Sodium Chloride (Saline Flush) 10 ml FLUSH ASDIRECTED PRN PRN Reason: Keep Vein Open Discontinued Medications Fentanyl (Sublimaze) Confirm Administered Dose 100 mcg .ROUTE .STK-MED ONE Stop: 06/05/18 07:36 Hydromorphone HCl (Dilaudid) 1 mg IVPUSH ONETIME ONE Stop: 06/05/18 12:16 Last Admin: 06/05/18 12:20 Dose: 1 mg Hydromorphone HCl (Dilaudid) 0.5 mg IVPUSH ONETIME ONE Stop: 06/05/18 14:31 Last Admin: 06/05/18 14:34 Dose: 0.5 mg Hydromorphone HCl (Dilaudid) 0.25 mg IVPUSH Q2H PRN PRN Reason: Pain Last Admin: 06/05/18 17:19 Dose: 0.25 mg Hydromorphone HCl (Dilaudid) 2 mg PO Q3H PRN PRN Reason: Pain Last Admin: 06/06/18 07:58 Dose: 1 mg Dextrose/Lactated Ringer's (Dextrose 5%-Lactated Ringers) 1,000 mls @ 100 mls/ hr IV ASDIRECTED [facility] Last Admin: 06/05/18 08:48 Dose: 100 mls/hr Sodium Chloride (Normal Saline) 1,000 mls @ 125 mls/hr IV ASDIRECTED [facility] Last Admin: 06/06/18 10:20 Dose: 125 mls/hr Midazolam HCl (Versed 1 Mg/Ml) Confirm Administered Dose 2 mg .ROUTE .STK-MED ONE Stop: 06/05/18 07:36 Ondansetron HCl (Zofran) 4 mg IVPUSH ONETIME ONE Stop: 06/05/18 10:56 Last Admin: 06/05/18 11:02 Dose: 4 mg Ondansetron HCl (Zofran) 4 mg IVPUSH Q4H PRN PRN Reason: Nausea/Vomiting Stop: 06/05/18 23:00 Last Admin: 06/05/18 14:40 Dose: 4 mg Propofol (Diprivan 20 Ml) Confirm Administered Dose 200 mg .ROUTE .STK-MED ONE Stop: 06/05/18 07:36 Propofol (Diprivan 20 Ml) Confirm Administered Dose 200 mg .ROUTE .STK-MED ONE Stop: 06/05/18 10:19 - Exam Quality Assessment: Supplemental Oxygen, DVT Prophylaxis General: Alert, Oriented, Cooperative, Mild Distress Lungs: Clear to Auscultation, Normal Respiratory Effort Cardiovascular: Regular Rate, Regular Rhythm, No Murmurs GI/Abdominal Exam: Soft, No Organomegaly, Tender. No: Distended, Guarding, Rigid, Rebound Extremities: Non-Tender, No Pedal Edema - Problem List Review Problem List Initiated/Reviewed/Updated: Yes - My Orders Last 24 Hours: My Active Orders 06/05/18 15:22 Ambulate [RC] QID Height and Weight [RC] DAILY Intake and Output [RC] QSHIFT Notify Provider Vital Signs [RC] ASDIRECTED Overnight Pulse Oximetry [RC] Click to Edit Oxygen Therapy [RC] PRN RT Aerosol Therapy [RC] ASDIRECTED Up ad Sara [RC] ASDIRECTED Up to Chair [RC] QID VTE/DVT Education [RC] Per Unit Routine Vital Signs [RC] Q4H Acetaminophen [Tylenol] 650 mg PO Q4H PRN Albuterol [Proventil Neb Soln] 2.5 mg NEB Q4H PRN Albuterol [Ventolin HFA] 0 gm INH Q4H PRN LORazepam [Ativan] 0.25 mg IVPUSH Q4H PRN Naproxen Sodium 220 mg PO DAILY PRN Ondansetron [Zofran] 4 mg IV Q4H PRN Sodium Chloride 0.9% [Saline Flush] 10 ml FLUSH ASDIRECTED PRN Peripheral IV Insertion Adult [OM.PC] Routine Pulse Oximetry Continuous Monitoring [OM.PC] Routine 06/05/18 16:15 Lactobacillus Rhamnosus GG [Culturelle] 1 cap PO BID 06/05/18 16:30 cefTRIAXone [Rocephin] 1 gm Sodium Chloride 0.9% [Normal Saline] 50 ml IV Q24H 06/05/18 16:39 Mometasone Furoate 100mcg [Asmanex HFA 100mcg] 0 gm INH BIDRT PRN 06/05/18 17:00 Enoxaparin [Lovenox] 40 mg SUBCUT Q24H 06/05/18 17:30 metroNIDAZOLE/Normal Saline [Flagyl 500 MG in NS 100 ML] 500 mg Premix Bag 1 bag IV Q8H 06/06/18 07:30 Pantoprazole [ProTONIX] 40 mg PO ACBREAKFAST 06/06/18 09:00 Aspirin [Halfprin] 81 mg PO DAILY Sertraline [Zoloft] 50 mg PO DAILY 06/06/18 10:33 Patient Status [ADT] Routine 06/06/18 11:40 Acetaminophen/HYDROcodone [[place] 325-5 MG] 1 tab PO Q4H PRN 06/06/18 15:49 Convert IV to Saline Lock [OM.PC] Routine 06/07/18 05:00 BASIC METABOLIC PANEL,BMP [CHEM] Timed CBC WITH AUTO DIFF [HEME] Timed - Plan Plan:: ASSESSMENT AND PLAN ABDOMINAL PAIN AND NAUSEA STATUS POST COLONOSCOPY-pain persistent but has been modestly improved compared to yesterday. With movement, no other precipitating or relieving factors. -Saline lock IV -Indication for pain and nausea as needed -Consider repeating CT scan with IV and oral contrast if pain persists COLITIS-identified on colonoscopy, no evidence of significant colon wall thickening noted on CT scan. Unlikely that this is the cause of current pain, in that the colitis was found on the left and most of her pain is in the right lower quadrant. Prior to today she has not had significant increase in her chronic abdominal pain or change in bowel habits. Small amount of blood noted intermittently in the form of blood on the toilet paper and drops of blood in the toilet water. Denies any recent fevers chills or sweats. Stool for C. difficile is negative, cultures pending. Most likely this represents infectious colitis, less likely inflammatory bowel disease. -Labs pending including CBC and CRP -IV antibiotic therapy; ceftriaxone and Flagyl MAINTENANCE ISSUES -DVT prophylaxis; Lovenox 40 mg subcutaneous daily -GI prophylaxis; Protonix 40 mg by mouth daily -Jaimes catheter; not indicated -Nutrition; regular diet -Nicotine dependence; not required CODE STATUS-full code ADMISSION STATUS-because of need for ongoing hospitalization and management she will be converted to inpatient status DISPOSITION-anticipate discharge to home after the hospital stay. PRIMARY CARE PROVIDER-Dr. Hwang
[2018-06-06] MEDS: Enoxaparin 40 MG/0.4 ML Syringe SUBCUT SCH (16:42)
[2018-06-07] MEDS: metroNIDAZOLE/Normal Saline 500 MG in Premix Bag 1 BAG IV SCH (02:17)
[2018-06-07] MEDS: Acetaminophen 325 MG Tab PO PRN (02:26)
[2018-06-07] MEDS: Pantoprazole 40 MG Tab.CR PO SCH (07:06)
--- NOTE | 2018-06-07 09:40 | PN ---
DATE OF SERVICE: 06/07/2018 SUBJECTIVE: Cheryle reports pain as 3 to 4 out of 10. She is taking Tylenol for the pain, has not needed to take the [place]. She states she still has the pain, it is in the right lower quadrant. Vital signs stable, afebrile. Oral intake was 1150. Urine output 1700. No bowel movement. REVIEW OF SYSTEMS: Remainder of review of systems is negative for any pertinent positives and negatives. OBJECTIVE: GENERAL: Cheryle is a 58-year-old female, alert, orientated. VITAL SIGNS: TPR 98, 75, 18, blood pressure 131/66. HEART: Regular rate and rhythm. LUNGS: Clear. ABDOMEN: Deferred. The patient will be examined by shruthi Archerist, and states she is still having pain, so does not want to be examined twice. EXTREMITIES: Negative. ASSESSMENT: 1. Right lower quadrant abdominal pain. 2. Status post colonoscopy, 06/05/2018. 3. Colitis. PLAN: Orders to be written per Carson Sidhu MD, hospitalist. Colette Herrmann PA-C /[id number]
[2018-06-07] MEDS: Lactobacillus Rhamnosus GG (Probiotic) Cap PO SCH (10:12)
--- NOTE | 2018-06-07 10:48 | PCM.DCSUM1 ---
Discharge Summary - Hospital Course Brief History: Ms. Oliver is a 58-year-old woman who was admitted as a direct admission from the residential care officer unit with increased abdominal pain and colitis identified on colonoscopy. - Discharge Data Discharge Date: 06/07/18 Discharge Disposition: Home, Self-Care 01 Condition: Fair - Discharge Diagnosis/Problem(s) (1) Colitis presumed to be due to infection SNOMED Code(s): 06471637 ICD Code: K52.9 - NONINFECTIVE GASTROENTERITIS AND COLITIS, UNSPECIFIED Status: Acute Current Visit: Yes (2) Abdominal pain SNOMED Code(s): 94751762 ICD Code: R10.9 - UNSPECIFIED ABDOMINAL PAIN Status: Acute Current Visit : Yes - Patient Summary/Data Hospital Course: Ms. Oliver is a 58-year-old woman who is admitted from the residential care officer unit with abdominal pain and nausea following colonoscopy. She's had a recent history of 3 episodes of diverticulitis over the past year, most recent of which was in March 2018. Colonoscopy was scheduled for follow-up, since her episode of diverticulitis in March she is felt relatively well and denies any new symptoms over the past few weeks. She has a history of irritable bowel syndrome with alternating diarrhea and constipation, this pattern has not changed significantly in the past several weeks. She denies any increase in diarrhea, fever, or increase in abdominal pain. She does have chronic right lower quadrant abdominal pain that is been present for many years. Colonoscopy was performed this morning by Dr. Guerrero and did show evidence of colitis in the left colon, not involving the rectum. She has had occasional episodes of blood on the toilet paper and small amount of blood in the toilet water but denies any overt bleeding. On colonoscopy she was found to have evidence of diverticulosis but no diverticulitis. She has had significant pain in her right lower quadrant since the colonoscopy, it similar to the usual pain that she experiences but more intense. She also is had some ongoing difficulty with nausea. CT scan of the abdomen and pelvis shows evidence of diverticulosis, no evidence of diverticulitis or free air within the abdomen. No evidence of significant colonic inflammation was identified on the CT scan. On admission she was given IV fluids for hydration as well as medication as needed for pain and nausea. IV antibiotics were started with ceftriaxone and metronidazole for management of colitis. Was felt likely that the colitis was most likely infectious rather than inflammatory, based on the lack of recent significant symptoms. She improved over the next 2 days of hospitalization, pain and not totally resolved by the time of discharge but was significantly improved when compared to admission. She was tolerating a regular diet and was ambulating in the hallways prior to discharge. She will be discharged on a soft low residue diet, activity will be as tolerated. She will be discharged on oral antibiotic therapy for ongoing management of colitis including metronidazole and Omnicef. Follow-up appointment will be scheduled with Dr. Guerrero for June 11 to review biopsy results from recent colonoscopy. She will return to the emergency room or call if she notes fever or increase in her abdominal pain. - Patient Instructions Diet: GI Soft/Low Residue/Low Fiber Activity: As Tolerated Other/Special Instructions: Schedule follow-up appointment with Dr. Guerrero for June 11. Please make sure to take probiotic either yogurt or capsule twice daily. - Discharge Plan *PRESCRIPTION DRUG MONITORING PROGRAM REVIEWED*: Not Applicable *COPY OF PRESCRIPTION DRUG MONITORING REPORT IN PATIENT ELIOT: Not Applicable Prescriptions/Med Rec: Cefdinir [Omnicef] 300 mg PO BID #16 cap Home Medications: Home Meds Albuterol Sulfate [Proair Hfa] 2 puff IH Q4H PRN 03/09/13 [History] Fluticasone Propionate [Flovent HFA 110 MCG] 2 puff IH ASDIRECTED PRN 03/09/13 [ History] Sertraline HCl 50 mg PO DAILY 03/09/13 [History] Ondansetron [Zofran ODT] 4 mg PO Q6H PRN #10 tab.dis 01/07/18 [Rx] Aspirin [Low Dose Aspirin EC] 81 mg PO DAILY 06/03/18 [History] Naproxen Sodium [Aleve] 220 mg PO DAILY PRN 06/05/18 [History] Cefdinir [Omnicef] 300 mg PO BID #16 cap 06/07/18 [Rx] Lactobacillus Rhamnosus GG [Culturelle] 1 cap PO BID cap 06/07/18 [Rx] metroNIDAZOLE [Metronidazole] 500 mg PO Q8H PRN #0 06/07/18 [Rx] - Discharge Summary/Plan Comment DC Time >30 min.: No - Patient Data Vitals - Most Recent: Last Vital Signs Temp 98.0 F 03/23/19 07:00 Pulse 75 06/07/18 07:00 Resp 18 06/07/18 07:00 BP 131/66 06/07/18 07:00 Pulse Ox 96 06/07/18 07:26 Weight - Most Recent: 225 lb 9.584 oz I&O - Last 24 hours: Intake & Output 06/06/18 06/07/18 06/07/18 22:59 06:59 14:59 Intake Total 400 500 Output Total 300 800 Balance 100 -300 Lab Results - Last 24 hrs: Laboratory Results - last 24 hr 06/06/18 06/06/18 06/07/18 Range/Units 10:46 10:46 05:11 WBC 9.2 7.7 (4.5-11.0) K/uL RBC 4.12 3.85 (3.30-5.50) M/uL Hgb 12.9 12.2 (12.0-15.0) g/dL Hct 40.0 37.5 (36.0-48.0) % MCV 97 97 (80-98) fL MCH 31 32 H (27-31) pg MCHC 32 33 (32-36) % Plt Count 227 192 (150-400) K/uL Neut % (Auto) 75 H 65 (36-66) % Lymph % (Auto) 15 L 23 L (24-44) % [place] % (Auto) 9 H 7 H (2-6) % Eos % (Auto) 2 5 H (2-4) % Baso % (Auto) 0 0 (0-1) % Sodium 138 L (140-148) mmol/L Potassium 4.4 (3.6-5.2) mmol/L Chloride 103 (100-108) mmol/L Carbon Dioxide 27 (21-32) mmol/L Anion Gap 12.4 (5.0-14.0) mmol/L BUN 10 (7-18) mg/dL Creatinine 0.8 (0.6-1.0) mg/dL Est Cr Clr Drug Dosing 71.46 mL/min Estimated GFR (MDRD) > 60 (>60) Glucose 118 H (74-106) mg/dL Calcium 8.9 (8.5-10.1) mg/dL Total Bilirubin 0.6 (0.2-1.0) mg/dL AST 22 (15-37) U/L ALT 32 (12-78) U/L Alkaline Phosphatase 105 (46-116) U/L C-Reactive Protein 5.26 H (0.0-0.3) mg/dL Total Protein 6.5 (6.4-8.2) g/dL Albumin 3.2 L (3.4-5.0) g/dL Globulin 3.3 (2.3-3.5) g/dL Albumin/Globulin Ratio 1.0 L (1.2-2.2) 06/07/18 Range/Units 05:11 WBC (4.5-11.0) K/uL RBC (3.30-5.50) M/uL Hgb (12.0-15.0) g/dL Hct (36.0-48.0) % MCV (80-98) fL MCH (27-31) pg MCHC (32-36) % Plt Count (150-400) K/uL Neut % (Auto) (36-66) % Lymph % (Auto) (24-44) % [place] % (Auto) (2-6) % Eos % (Auto) (2-4) % Baso % (Auto) (0-1) % Sodium 141 (140-148) mmol/L Potassium 3.7 (3.6-5.2) mmol/L Chloride 108 (100-108) mmol/L Carbon Dioxide 25 (21-32) mmol/L Anion Gap 7.9 (5.0-14.0) mmol/L BUN 8 (7-18) mg/dL Creatinine 0.8 (0.6-1.0) mg/dL Est Cr Clr Drug Dosing 71.46 mL/min Estimated GFR (MDRD) > 60 (>60) Glucose 109 H (74-106) mg/dL Calcium 8.4 L (8.5-10.1) mg/dL Total Bilirubin (0.2-1.0) mg/dL AST (15-37) U/L ALT (12-78) U/L Alkaline Phosphatase (46-116) U/L C-Reactive Protein (0.0-0.3) mg/dL Total Protein (6.4-8.2) g/dL Albumin (3.4-5.0) g/dL Globulin (2.3-3.5) g/dL Albumin/Globulin Ratio (1.2-2.2) MAK Results - Last 24 hrs: Microbiology 06/05/18 10:54 Stool Culture - Preliminary Stool / Feces - Stool, Liquid NORMAL ENTERIC CHRIS 2 DAYS Shiga Toxin I - Final NEGATIVE FOR SHIGA TOXIN 1 Shiga Toxin II - Final NEGATIVE FOR SHIGA TOXIN 2 Med Orders - Current: Current Medications Acetaminophen (Tylenol) 650 mg PO Q4H PRN PRN Reason: Pain (Mild 1-3)/fever Last Admin: 06/07/18 02:26 Dose: 650 mg Hydrocodone Bitart/Acetaminophen ([place] 325-5 Mg) 1 tab PO Q4H PRN PRN Reason: Pain Last Admin: 06/06/18 18:13 Dose: 1 tab Albuterol (Ventolin Hfa) 0 gm INH Q4H PRN PRN Reason: Wheezing Albuterol (Proventil Neb Soln) 2.5 mg NEB Q4H PRN PRN Reason: Shortness Of Breath/wheezing Aspirin (Halfprin) 81 mg PO DAILY [facility] Last Admin: 06/06/18 08:01 Dose: Not Given Calcium Carbonate/Glycine (Tums) 1,000 mg PO Q2H PRN PRN Reason: Indigestion Last Admin: 06/06/18 10:16 Dose: 1,000 mg Enoxaparin Sodium (Lovenox) 40 mg SUBCUT Q24H [facility] Last Admin: 06/06/18 16:42 Dose: Not Given Ceftriaxone Sodium 1 gm/ (Sodium Chloride) 50 mls @ 100 mls/hr IV Q24H [facility] Last Admin: 06/06/18 15:52 Dose: 100 mls/hr Metronidazole 500 mg/ Premix 100 mls @ 100 mls/hr IV Q8H [facility] Last Admin: 06/07/18 02:17 Dose: 100 mls/hr Lactobacillus Rhamnosus (Culturelle) 1 cap PO BID [facility] Last Admin: 06/07/18 10:12 Dose: 1 cap Lorazepam (Ativan) 0.25 mg IVPUSH Q4H PRN PRN Reason: Nausea Mometasone Furoate (Asmanex Hfa 100mcg) 0 gm INH BIDRT PRN PRN Reason: WHEEZING Naproxen (Naproxen Sodium) 220 mg PO DAILY PRN PRN Reason: Pain Ondansetron HCl (Zofran) 4 mg IV Q4H PRN PRN Reason: Nausea/Vomiting Pantoprazole Sodium (Protonix) 40 mg PO ACBREAKFAST [facility] Last Admin: 06/07/18 07:06 Dose: 40 mg Sertraline HCl (Zoloft) 50 mg PO DAILY [facility] Last Admin: 06/06/18 08:01 Dose: Not Given Sodium Chloride (Saline Flush) 10 ml FLUSH ASDIRECTED PRN PRN Reason: Keep Vein Open Discontinued Medications Fentanyl (Sublimaze) Confirm Administered Dose 100 mcg .ROUTE .STK-MED ONE Stop: 06/05/18 07:36 Hydromorphone HCl (Dilaudid) 1 mg IVPUSH ONETIME ONE Stop: 06/05/18 12:16 Last Admin: 06/05/18 12:20 Dose: 1 mg Hydromorphone HCl (Dilaudid) 0.5 mg IVPUSH ONETIME ONE Stop: 06/05/18 14:31 Last Admin: 06/05/18 14:34 Dose: 0.5 mg Hydromorphone HCl (Dilaudid) 0.25 mg IVPUSH Q2H PRN PRN Reason: Pain Last Admin: 06/05/18 17:19 Dose: 0.25 mg Hydromorphone HCl (Dilaudid) 2 mg PO Q3H PRN PRN Reason: Pain Last Admin: 06/06/18 07:58 Dose: 1 mg Dextrose/Lactated Ringer's (Dextrose 5%-Lactated Ringers) 1,000 mls @ 100 mls/ hr IV ASDIRECTED [facility] Last Admin: 06/05/18 08:48 Dose: 100 mls/hr Sodium Chloride (Normal Saline) 1,000 mls @ 125 mls/hr IV ASDIRECTED [facility] Last Admin: 06/06/18 10:20 Dose: 125 mls/hr Midazolam HCl (Versed 1 Mg/Ml) Confirm Administered Dose 2 mg .ROUTE .STK-MED ONE Stop: 06/05/18 07:36 Ondansetron HCl (Zofran) 4 mg IVPUSH ONETIME ONE Stop: 06/05/18 10:56 Last Admin: 06/05/18 11:02 Dose: 4 mg Ondansetron HCl (Zofran) 4 mg IVPUSH Q4H PRN PRN Reason: Nausea/Vomiting Stop: 06/05/18 23:00 Last Admin: 06/05/18 14:40 Dose: 4 mg Propofol (Diprivan 20 Ml) Confirm Administered Dose 200 mg .ROUTE .STK-MED ONE Stop: 06/05/18 07:36 Propofol (Diprivan 20 Ml) Confirm Administered Dose 200 mg .ROUTE .STK-MED ONE Stop: 06/05/18 10:19 - Exam General: Reports: Alert, Oriented, Cooperative, Mild Distress Lungs: Reports: Clear to Auscultation, Normal Respiratory Effort, Decreased Breath Sounds Cardiovascular: Reports: Regular Rate, Regular Rhythm, No Murmurs GI/Abdominal Exam: Soft, No Organomegaly, Tender. No: Distended, Guarding, Rigid, Rebound
[2018-06-07 11:07] VITALS: BP 123/57
--- NOTE | 2018-06-11 12:35 | OR ---
DATE OF PROCEDURE: 06/05/2018 PREOPERATIVE DIAGNOSES: Abdominal pain with history of diverticular disease. POSTOPERATIVE DIAGNOSES: 1. Focal marked colitis involving ascending and hepatic flexures of colon (rectum and distal colon spared). 2. Uncomplicated left colonic diverticulitis. OPERATIVE PROCEDURES: Flexible colonoscopy with, 1. Biopsies of ascending and hepatic flexures of colon (75213). 2. Collection of stool for culture and sensitivity ([id number]). ANESTHESIA: IV sedation. INDICATION FOR PROCEDURE: This is a 58-year-old female presenting with ongoing right mid and lower abdominal pain. She does have history of diverticulitis twice in recent months and is to undergo flexible colonoscopy for evaluation of her colon in general. Potential risks including bleeding and perforation were discussed, and the patient wishes to proceed. DETAILS OF PROCEDURE: The patient was taken to the operating room and placed in a left lateral decubitus position. IV sedation was administered, after which the initial digital rectal exam was performed and was unremarkable. Colonoscope was then passed into the rectum with retroflexion revealing uncomplicated hemorrhoids. The scope was eventually passed to the level of the cecum. The prep was generally quite good with there only small amount of liquid stool being present. Within the sigmoid colon, there was quite a bit of diverticulosis, but at this point, no areas of diverticulitis. There was no stricturing; although, in the areas of the diverticular disease, the colon was slightly narrowed, but again no acute pathology appeared to be present. More proximally, as one approached the hepatic flexure, it became evident that there was quite a bit of edema, redness and some blood present down the colon at that level. This extended down to the ascending colon. In the cecum, the mucosal findings essentially normalized. Again, in the ascending and hepatic flexures of the colon, there was marked redness and bleeding and thickened friable mucosa present. Cultures were obtained from the stool throughout the process and sent for a full battery of stool with microbiologic workup. Multiple biopsies were then obtained from the ascending and hepatic flexures of the colon and minimal additional bleeding was seen from the biopsy sites as the scope was then withdrawn. As noted above, the more distal colon and rectum were spared of any gross evident inflammatory disease. The procedure was then completed. Then, the patient was taken to the recovery room in a satisfactory condition. Postprocedure, the patient was complaining of quite a bit of left abdominal pain and a CT scan was obtained, which did not show any complications, i.e., no signs of perforation. I suspected the pain was related to the distention and biopsies of the area of colitis. For pain control and observation, the patient was admitted per Dr. Sidhu. As an outpatient, the patient would be following up with her personal physician, Dr. Kathleen Hwang, at [facility]. Sky Guerrero MD /[id number]
== END 2018-06-07 11:50 | disposition home or self-care (01) ==
LOC: JP.SDS 07:57 → JP.2SS 14:25
PROVIDERS: ADMIT Hospitalist; ATTEND Hospitalist
DX: K52.9 Noninfective gastroenteritis and colitis, unspecified (principal); K57.30 Diverticulosis of large intestine without perforation or abscess without bleeding; E66.9 Obesity, unspecified; J45.909 Unspecified asthma, uncomplicated; F32.9 Major depressive disorder, single episode, unspecified; Z87.891 Personal history of nicotine dependence; Z87.19 Personal history of other diseases of the digestive system; Z79.899 Other long term (current) drug therapy; Z88.1 Allergy status to other antibiotic agents; Z91.048 Other nonmedicinal substance allergy status
CPT/HCPCS: 36415; 45380; 74176; 80048; 80053; 85025; 86140; 87046; 87177; 87209; 87493; 87899; 88305; 94762; A9270; J0696; J1170; J2250; J2405; J2704; J3010; J3490; J7030; J7042; J7050